=== PATIENT | female | born 1980 | race Caucasian/White ===

== ENCOUNTER 2021-12-22 07:03 | Day surgery (SDC) | payer BC ==
[2021-12-22] MEDS ORDERED: BUPIVACAINE 0.5% VIAL IJ ONE (07:04)
[2021-12-22] MEDS ORDERED: Depo-Medrol 40 MG/ML IM ONE (07:04)
[2021-12-22] MEDS ORDERED: DIPRIVAN 200 MG/20 ML IV ONE (08:29)
--- NOTE | 2021-12-22 10:45 | XRAY ---
Indication: Right knee and pes anserine bursa injections. Intraoperative fluoroscopy provided for 8 seconds. Single digital spot images submitted for interpretation demonstrates needle tip projecting over the right femur intercondylar notch. Small amount of contrast injected for needle tip placement. Correlate with intraoperative findings/report.
--- NOTE | 2021-12-22 10:49 | XRAY ---
8 seconds of fluoroscopy was used in surgery for a right knee intra-articular and pes anserine bursa injections.
[2021-12-22] MEDS ORDERED: Lactated Ringers 1,000 ML IV ONE (12:57)
== END 2021-12-22 08:51 | disposition home or self-care (01) ==
LOC: SDC-PAIN 07:03
PROVIDERS: ATTEND Psychiatry & Neurology Pain Medicine
DX: M17.11 Unilateral primary osteoarthritis, right knee (principal); M70.51 Other bursitis of knee, right knee; Z79.899 Other long term (current) drug therapy
CPT/HCPCS: 20610; 73560; 77002; 81025; J1030; J2704; Q9966